=== PATIENT | male | born 1975 | race Caucasian/White ===

== ENCOUNTER → 2025-01-02 14:41 | Outpatient (REF) | payer BC, SELFPAY | LOC: DHSLP 14:41 | PROVIDERS: ATTENDING PHYSICIAN Internal Medicine Cardiovascular Disease; FAMILY PHYSICIAN Family Medicine | DX: G47.33 Obstructive sleep apnea (adult) (pediatric) (principal); R09.02 Hypoxemia | CPT/HCPCS: 95800 ==